=== PATIENT | female | born 1995 | race American Indian/Alaskan Native ===

== ENCOUNTER 2020-08-02 02:17 | Emergency (ER) | payer MEDICAID ==
[2020-08-02 03:19] VITALS: BP 124/72
--- NOTE | 2020-08-02 04:59 | Emergency Department Report ---
- General Chief Complaint: Upper Respiratory Infection Stated Complaint: HEADACHE/SORE THROAT/FACIAL PAIN Source: patient Mode of arrival: Ambulatory Limitations: No Limitations - History of Present Illness Initial Comments: Patient is a 24-year-old -[place] female with no past medical history who presents to the ED with complaint of acute onset persistent right frontotemporal headache, frontal sinus pressure, sore throat for the last 1 week but worse in the last 2 days. Patient states that she has been taking [id number] medication with no relief. Patient states that the symptoms are intermittent but when present she can hardly sleep. Patient denies dizziness, syncope, nasal congestion, fever, chills, cough, chest pain, shortness of breath, traumatic injury, nausea and vomiting, neck pain, back pain, change in vision or dysphagia. MD Complaint: sore throat, rhinorrhea, nasal congestion, sinus pain, other (Right temporal headache) -: Sudden, days(s) (Worse in the last 2 days), week(s) (1) Severity: moderate Severity scale (0 -10): 5 Quality: sharp, aching Consistency: intermittent Improves With: nothing Worsens With: nothing Associated Symptoms: denies other symptoms, headache, rhinorrhea, nasal congestion, sore throat. denies: fever, chills, myalgias, diaphoresis, stiff neck, cough, chest pain, shortness of breath, abdominal pain, nausea, vomiting, diarrhea, dysuria, rash, confusion, right sweats, weight loss, epistaxis, hoarseness, ear pain, other Treatments Prior to Arrival: none - Related Data Previous Rx's Medication Instructions Recorded Last Taken Type Azithromycin [Zithromax Z-ROXANNE] 250 mg PO DAILY #6 tablet 08/02/20 Unknown Rx Butalb/Acetamin/Caff 50-325-40 1 - 2 tab PO Q6HR PRN #15 tab 08/02/20 Unknown Rx [Fioricet 50-325-40] Ibuprofen [Motrin] 600 mg PO Q8H PRN #20 tablet 08/02/20 Unknown Rx Allergies Allergy/AdvReac Type Severity Reaction Status Date / Time No Known Allergies Allergy Unverified 08/02/20 03:27 ED Review of Systems ROS: Stated complaint: HEADACHE/SORE THROAT/FACIAL PAIN Other details as noted in HPI Constitutional: denies: chills, fever Eyes: denies: eye pain, eye discharge, vision change ENT: throat pain, congestion. denies: ear pain Respiratory: denies: cough, shortness of breath, wheezing Cardiovascular: denies: chest pain, palpitations Endocrine: no symptoms reported Gastrointestinal: denies: abdominal pain, nausea, diarrhea Genitourinary: denies: urgency, dysuria, discharge Musculoskeletal: denies: back pain, joint swelling, arthralgia Skin: denies: rash, lesions Neurological: headache. denies: weakness, paresthesias Psychiatric: denies: anxiety, depression Hematological/Lymphatic: denies: easy bleeding, easy bruising ED Past Medical Hx - Past Medical History Previous Medical History?: No - Surgical History Past Surgical History?: No - Social History Smoking Status: Never Smoker Substance Use Type: None - Medications Home Medications: Home Medications Medication Instructions Recorded Confirmed Last Taken Type Azithromycin [Zithromax Z-ROXANNE] 250 mg PO DAILY #6 tablet 08/02/20 Unknown Rx Butalb/Acetamin/Caff 50-325-40 1 - 2 tab PO Q6HR PRN #15 tab 08/02/20 Unknown Rx [Fioricet 50-325-40] Ibuprofen [Motrin] 600 mg PO Q8H PRN #20 tablet 08/02/20 Unknown Rx ED Physical Exam - General Limitations: No Limitations General appearance: alert, in no apparent distress - Head Head exam: Present: atraumatic, normocephalic, normal inspection - Eye Eye exam: Present: normal appearance, PERRL, EOMI Pupils: Present: normal accommodation - ENT ENT exam: Present: mucous membranes moist, other (Erythematous oropharynx and tonsils; uvula midline, no sign of peritonsillar abscess) - Neck Neck exam: Present: normal inspection, lymphadenopathy (Anterior cervical lymphadenopathy) - Respiratory Respiratory exam: Present: normal lung sounds bilaterally. Absent: respiratory distress, wheezes, rales, rhonchi, chest wall tenderness, accessory muscle use, decreased breath sounds, prolonged expiratory - Cardiovascular Cardiovascular Exam: Present: regular rate, normal rhythm, normal heart sounds. Absent: systolic murmur, diastolic murmur, rubs, gallop - GI/Abdominal GI/Abdominal exam: Present: soft, normal bowel sounds. Absent: tenderness, guarding, rebound - Extremities Exam Extremities exam: Present: normal inspection, full ROM, normal capillary refill - Back Exam Back exam: Present: normal inspection, full ROM. Absent: tenderness, CVA tenderness (R), CVA tenderness (L), muscle spasm, paraspinal tenderness, vertebral tenderness - Neurological Exam Neurological exam: Present: alert, oriented X3, CN II-XII intact, normal gait, reflexes normal - Psychiatric Psychiatric exam: Present: normal affect, normal mood - Skin Skin exam: Present: warm, dry, intact, normal color. Absent: rash ED Course Vital Signs 08/02/20 03:16 Temperature 99.4 F Pulse Rate 63 Respiratory 18 Rate Blood Pressure 124/72 O2 Sat by Pulse 99 Oximetry ED Medical Decision Making - Medical Decision Making This is a 24-year-old -[place] female with no past medical history who presents to the ED with complaint of acute onset persistent right frontotemporal headache, frontal sinus pressure, sore throat for the last 1 week but worse in the last 2 days. Patient states that she has been taking pccv-plm-[id number] medication with no relief. Patient states that the symptoms are intermittent but when present she can hardly sleep. In the ED, patient is alert and oriented x3 and is not in any distress. Patient is hemodynamically stable. Patient symptoms are likely due to sinusitis, URI; pharyngitis; or allergic rhinitis. Therefore based on the history and physical exam findings, patient will discharge home on medications and advised to follow-up with her primary care physician in 7 to 10 days for reevaluation. Patient is advised return to the ED immediately if symptoms get worse. - Differential Diagnosis Sinusitis; pharyngitis; URI; sinus headache Critical care attestation.: If time is entered above; I have spent that time in minutes in the direct care of this critically ill patient, excluding procedure time. ED Disposition Clinical Impression: Sinus headache Acute frontal sinusitis, unspecified Qualifiers: Recurrence: non-recurrent Qualified Code(s): J01.10 - Acute frontal sinusitis, unspecified Acute pharyngitis Qualifiers: Pharyngitis/tonsillitis etiology: unspecified etiology Qualified Code(s): J02.9 - Acute pharyngitis, unspecified Disposition: DC-01 TO HOME OR SELFCARE Is pt being admited?: No Does the pt Need Aspirin: No Condition: Stable Instructions: Sinusitis, Adult, [id number], Pharyngitis, Epbk-fe-Gozk, Sore Throat, Ldpo-pl-Wzsu, Sinus Headache, Niba-gd-Sbag Additional Instructions: Your symptoms are likely due to sinusitis that results in sinus headache and pharyngitis. Therefore take medications with food, drink plenty of fluids and follow-up with your primary care physician in 7 to 10 days for reevaluation. Return to the ED immediately if symptoms get worse. Prescriptions: Butalb/Acetamin/Caff 50-325-40 [Fioricet 50-325-40] 1 - 2 tab PO Q6HR PRN #15 tab PRN Reason: Headache Ibuprofen [Motrin] 600 mg PO Q8H PRN #20 tablet PRN Reason: Pain Azithromycin [Zithromax Z-ROXANNE] 250 mg PO DAILY #6 tablet Referrals: [facility] [Provider Group] - 7-10 days Time of Disposition: 04:57 Print Language: ESTONIAN
== END 2020-08-02 05:00 | disposition home or self-care (01) ==
LOC: ED 02:17
DX: J01.10 Acute frontal sinusitis, unspecified (principal); J02.9 Acute pharyngitis, unspecified; Z79.899 Other long term (current) drug therapy
CPT/HCPCS: 99282

== ENCOUNTER 2020-08-16 23:01 | Emergency (ER) | payer MEDICAID ==
[2020-08-17 00:05] VITALS: BP 123/90
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
[2020-08-17] MEDS ORDERED: HYDROcodone/ACETAMINOPHEN 5-325 MG TAB PO STA (03:35)
== END 2020-08-17 04:30 | disposition home or self-care (01) ==
LOC: ED 23:01
DX: S66.912A Strain of unspecified muscle, fascia and tendon at wrist and hand level, left hand, initial encounter (principal); Z79.899 Other long term (current) drug therapy; V49.49XA Driver injured in collision with other motor vehicles in traffic accident, initial encounter; Y92.410 Unspecified street and highway as the place of occurrence of the external cause; Y93.89 Activity, other specified; Y99.8 Other external cause status